=== PATIENT | male | born 1950 | race Caucasian/White ===

== ENCOUNTER 2025-06-10 06:29 | Emergency (ER) | payer OTHER ==
[2025-06-10 07:29] LABS: ALT (SGPT) 27 U/L (Less than 45); AST (SGOT) 30 U/L (11-34); Albumin 3.8 g/dL (3.1-4.5); Alkaline Phosphatase 93 U/L (40-110); Anion Gap 15 mmol/L (10-20); BUN (Urea Nitrogen) 12 mg/dL (8.4-25.7); Bilirubin, Total 1.1 mg/dL (0.3-1.2); Calc. Creatinine Clearance 0 mL/min (70-130); Calcium 9.0 mg/dL (7.8-10.44); Carbon Dioxide 24 mmol/L (23-31); Chloride 104 mmol/L (98-107); Globulin 3.1 g/dL (2.4-3.5); Glucose 105 mg/dL (83-110); Potassium 4.7 mmol/L (3.5-5.1); Sodium 138 mmol/L (136-145)
[2025-06-10 07:37] LABS: Troponin I Less than 0.010 ng/mL (< 0.028)
[2025-06-10 07:52] LABS: #Basophils 0.03 10x3/uL (0.0-0.2); #Eosinophils 0.07 10x3/uL (0.0-0.5); #Monocytes 1.13 10x3/uL (0.0-1.1); #Neutrophils 6.61 10x3/uL (1.5-8.4); %Basophils 0.3 % (0.0-2.0); %Eosinophils 0.8 % (0.0-6.0); %Lymphocytes 12.8 % (18.0-47.0); %Monocytes 12.5 % (0.0-10.0); %Neutrophils 73.4 % (40.0-75.0); Hematocrit 38.8 % (38.8-50.0); Hemoglobin 13.1 g/dL (13.5-17.5); Mean Corpuscular Hemoglobin 31.3 pg (27.0-33.0); Mean Corpuscular Volume 92.8 fL (81.2-95.1); Platelet Adequacy Comment Appears Decreased; Platelet Count 137 10x3/uL (130-400); RBC Morphology Within Normal Limits; Red Blood Cell (RBC) Count 4.18 10x6/uL (4.32-5.72); White Blood Cell (WBC) Count 9.01 10x3/uL (3.5-10.5)
[2025-06-10] MEDS ORDERED: Ketorolac Tromethamine 30 MG (1 mL) VIAL ONE (08:36)
== END 2025-06-10 08:54 | disposition home or self-care (01) ==
LOC: EEVIPCON 06:29 → CSHERS 06:29
DX: R09.1 Pleurisy (principal); I25.10 Atherosclerotic heart disease of native coronary artery without angina pectoris; I10 Essential (primary) hypertension; E78.5 Hyperlipidemia, unspecified; J44.9 Chronic obstructive pulmonary disease, unspecified; K21.9 Gastro-esophageal reflux disease without esophagitis; Z95.0 Presence of cardiac pacemaker; Z79.82 Long term (current) use of aspirin; Z79.51 Long term (current) use of inhaled steroids; Z79.899 Other long term (current) drug therapy
CPT/HCPCS: 36415; 71045; 80053; 84484; 85025; 93005; 94760; 96374; J1885